=== PATIENT | male | born 1965 | race Caucasian/White ===

== ENCOUNTER 2020-05-26 19:54 | Inpatient (IN) | payer MEDICARE, MEDICAID ==
[~2020-05-26] VITALS: Ht 180.3 cm; Wt 111.1 kg
[2020-05-26] MEDS ORDERED: SODIUM CHLORIDE 0.9% 1,000 ML IV ONE (21:00)
[2020-05-26 23:53] LABS: BASOPHILS % 1.2 % (0.0-2.0); HEMATOCRIT. 36.1 % (42.0-52.0); HEMOGLOBIN. 11.8 g/dL (14.0-18.0); LYMPHOCYTES % 40.8 % (20.0-50.0); MEAN CORPUSCULAR VOLUME 85.8 fL (80.0-94.0); MEAN PLATELET VOLUME 8.8 fl (7.4-10.4); PLATELET 227 x1000/uL (130-400); RED BLOOD CELL COUNT 4.21 mill/uL (4.7-6.1); RED CELL DISTRIBUTION WIDTH 14.3 % (11.6-14.6)
[2020-05-26 23:58] LABS: CHLORIDE 104 mEq/L (98-107)
[2020-05-27 00:02] LABS: ETHANOL BLOOD < 10 mg/dL
[2020-05-27] MEDS ORDERED: CEFTRIAXONE 1 G PREMIX 50 ML IV ONE (01:30)
[2020-05-27] MEDS ORDERED: AZITHROMYCIN 500 MG in DEXT 5% WATER 250 ML IV ONE (01:30)
[2020-05-27] MEDS ORDERED: POTASSIUM CHLORIDE 20MEQ TABLET SR PO ONE (01:30)
[2020-05-27 09:00] VITALS: BP 135/92
[2020-05-27 09:05] VITALS: BP 138/92
[2020-05-27] MEDS ORDERED: ONDANSETRON HCL 4MG/2ML INJ IV PRN (09:30)
[2020-05-27] MEDS ORDERED: ACETAMINOPHEN 325MG TABLET PO PRN (09:30)
[2020-05-27 12:00] VITALS: BP 143/92
[2020-05-27] MEDS ORDERED: IPRATROPIUM/ALBUTEROL 0.5-3(2.5)MG/3ML NEB HHN PRN (13:15)
[2020-05-27] MEDS: NICOTINE 21MG PATCH TD SCH (13:30)
[2020-05-27] MEDS ORDERED: CARI350T28 MT (15:30)
[2020-05-27] MEDS ORDERED: FURO-152 PO (15:30)
[2020-05-27] MEDS ORDERED: ATOR10TA MT (15:30)
[2020-05-27] MEDS ORDERED: QUET25TA MT (15:30)
[2020-05-27 16:00] VITALS: BP 165/92
[2020-05-27] MEDS ORDERED: LEVE10006 MT (16:39)
[2020-05-27] MEDS ORDERED: TRAM50TA94 PO (16:39)
[2020-05-27] MEDS ORDERED: METH10OR MT (16:39)
[2020-05-27 18:56] LABS: CLARITY URINE CLEAR (CLEAR); COLOR URINE YELLOW (YELLOW); KETONES URINE TRACE (NEGATIVE); LEUKOCYTE ESTERASE URINE NEGATIVE (NEGATIVE); NITRITE URINE NEGATIVE (NEGATIVE); OCCULT BLOOD URINE NEGATIVE (NEGATIVE); PROTEIN URINE NEGATIVE (NEGATIVE); SPECIFIC GRAVITY URINE 1.024 (1.005-1.030)
[2020-05-27 19:11] LABS: *AMPHETAMINES SCREEN URINE PRESUMTIVE POSITIVE (NEGATIVE); *BARBITURATES SCREEN URINE NEGATIVE (NEGATIVE)
[2020-05-27 19:12] LABS: *BENZODIAZEPINES SCREEN URINE NEGATIVE (NEGATIVE); *COCAINE SCREEN URINE NEGATIVE (NEGATIVE); METHADONE URINE SCREEN PRESUMTIVE POSITIVE (NEGATIVE); OPIATES URINE SCREEN NEGATIVE (NEGATIVE); PHENCYCLIDINE URINE SCREEN NEGATIVE (NEGATIVE)
[2020-05-27 19:13] LABS: CANNABINOID URINE SCREEN PRESUMTIVE POSITIVE (NEGATIVE)
[2020-05-27 20:00] VITALS: BP 121/81
[2020-05-27] MEDS: AMLODIPINE 10MG TABLET PO SCH (20:52)
[2020-05-27] MEDS: ENOXAPARIN 30MG/0.3ML SYR SUBCUT SCH (20:54)
[2020-05-27] MEDS: ACETAMINOPHEN WITH CODEINE 300/30MG TABLET PO PRN (20:56)
[2020-05-27] MEDS: METOPROLOL TARTRATE 25MG TABLET PO SCH (22:05)
[2020-05-27] MEDS ORDERED: SIMETHICONE 80MG TABLET CHEW PO PRN (23:00)
[2020-05-27] MEDS: MAGNESIUM/ALUMINUM HYDROXIDE/SIMETHICONE 30ML UDC PO PRN (23:36)
[2020-05-28] VITALS: BP 114/64
[2020-05-28] MEDS: ACETAMINOPHEN WITH CODEINE 300/30MG TABLET PO PRN ×4 (03:25→19:53)
[2020-05-28 04:00] VITALS: BP 125/82
[2020-05-28 07:45] LABS: BASOPHILS % 0.9 % (0.0-2.0); EOSINOPHILS % 5.3 % (0.0-5.0); HEMATOCRIT. 39.8 % (42.0-52.0); HEMOGLOBIN. 13.2 g/dL (14.0-18.0); LYMPHOCYTES % 38.9 % (20.0-50.0); MEAN CORPUSCULAR HEMOGLOBIN 28.8 pg (28.0-32.0); MEAN CORPUSCULAR VOLUME 86.8 fL (80.0-94.0); MEAN PLATELET VOLUME 10.1 fl (7.4-10.4); MONOCYTES % 12.3 % (2.0-8.0); NEUTROPHILS % 42.6 % (40.0-76.0); PLATELET 245 x1000/uL (130-400); RED BLOOD CELL COUNT 4.58 mill/uL (4.7-6.1); RED CELL DISTRIBUTION WIDTH 14.1 % (11.6-14.6)
[2020-05-28 07:47] LABS: CHLORIDE 103 mEq/L (98-107)
[2020-05-28 07:55] LABS: LDL CHOLESTEROL 88 mg/dL (5-100)
[2020-05-28 07:56] LABS: HDL CHOLESTEROL 47 mg/dL (40-59)
[2020-05-28 08:00] VITALS: BP 130/59
[2020-05-28] MEDS: ASPIRIN 81MG TABLET PO SCH (08:33)
[2020-05-28] MEDS: FAMOTIDINE 20MG TABLET PO SCH ×2 (08:38→21:20)
[2020-05-28] MEDS: NICOTINE 21MG PATCH TD SCH (08:39)
[2020-05-28] MEDS: ENOXAPARIN 30MG/0.3ML SYR SUBCUT SCH ×2 (08:40→19:53)
[2020-05-28] MEDS: AMLODIPINE 10MG TABLET PO SCH (08:49)
[2020-05-28] MEDS: METOPROLOL TARTRATE 25MG TABLET PO SCH ×2 (08:49→21:20)
[2020-05-28 12:00] VITALS: BP 128/59
[2020-05-28] MEDS: FUROSEMIDE 40MG/4ML VIAL IVP SCH ×2 (14:56→17:40)
[2020-05-28 20:00] VITALS: BP 114/78
[2020-05-29] VITALS: BP 140/81
[2020-05-29] MEDS: ACETAMINOPHEN WITH CODEINE 300/30MG TABLET PO PRN ×3 (01:58→11:43)
[2020-05-29 04:00] VITALS: BP 121/75
[2020-05-29] MEDS ORDERED: IOHEXOL-350 100 ML BOTTLE ONE (05:40)
[2020-05-29] MEDS ORDERED: IOHEXOL-300 100 ML BOTTLE ONE (05:40)
[2020-05-29] MEDS: FUROSEMIDE 40MG/4ML VIAL IVP SCH ×2 (06:32→17:15)
[2020-05-29] MEDS: MAGNESIUM/ALUMINUM HYDROXIDE/SIMETHICONE 30ML UDC PO PRN (06:50)
[2020-05-29 08:00] VITALS: BP 121/81
[2020-05-29] MEDS: ENOXAPARIN 30MG/0.3ML SYR SUBCUT SCH (08:34)
[2020-05-29] MEDS: ASPIRIN 81MG TABLET PO SCH (08:35)
[2020-05-29] MEDS: METOPROLOL TARTRATE 25MG TABLET PO SCH (08:35)
[2020-05-29] MEDS: AMLODIPINE 10MG TABLET PO SCH (08:35)
[2020-05-29] MEDS: FAMOTIDINE 20MG TABLET PO SCH (08:35)
[2020-05-29] MEDS: NICOTINE 21MG PATCH TD SCH (08:36)
[2020-05-29 09:11] LABS: ABSOLUTE EOSINOPHILS 0.3 x10E3/uL (0.0-0.4); ABSOLUTE LYMPHOCYTES 1.9 x10E3/uL (0.7-3.1); ABSOLUTE MONOCYTES 0.4 x10E3/uL (0.1-0.9); ABSOLUTE NEUTROPHILS 1.9 x10E3/uL (1.4-7.0); BASOPHILS 0 % (Not Estab.); HEMATOCRIT 42.4 % (37.5-51.0); HEMOGLOBIN 13.6 g/dL (13.0-17.7); IMMATURE GRANULOCYTES 0 % (Not Estab.); LYMPHOCYTES 42 % (Not Estab.); MEAN CORPUSCULAR HEMOGLOBIN 28.9 pg (26.6-33.0); MEAN CORPUSCULAR HGB CONC. 32.1 g/dL (31.5-35.7); MEAN CORPUSCULAR VOLUME 90 fL (79-97); MONOCYTES 10 % (Not Estab.); NEUTROPHILS 42 % (Not Estab.); PLATELETS 282 x10E3/uL (150-450); RBC 4.71 x10E6/uL (4.14-5.80); RED CELL DISTRIBUTION WIDTH 12.7 % (11.6-15.4); WBC 4.5 x10E3/uL (3.4-10.8)
[2020-05-29 10:12] LABS: % CD 3 POS. LYMPHOCYTES 73.3 % (57.5-86.2); % CD 4 POS. LYMPHOCYTES 23.6 % (30.8-58.5); % CD 8 POS. LYMPH 48.2 % (12.0-35.5); ABSOLUTE CD 3 1393 /uL (622-2402); ABSOLUTE CD 4 HELPER 448 /uL (359-1519); ABSOLUTE CD 8 SUPPRESSOR 916 /uL (109-897); CD4/CD8 RATIO 0.49 (0.92-3.72)
[2020-05-29 11:43] VITALS: BP 101/60
[2020-05-29] MEDS ORDERED: FLUT1DIS3 INH (12:21)
[2020-05-29] MEDS ORDERED: ALBU18HF2 IH (12:21)
[2020-05-29] MEDS ORDERED: FURO-151 MT (12:21)
[2020-05-29] MEDS ORDERED: POTA10CA42 MT (12:21)
[2020-05-29] MEDS ORDERED: NICO-789 TD (12:21)
[2020-05-29] MEDS ORDERED: AMLO10TA80 PO (12:21)
== END 2020-05-29 19:25 | disposition home or self-care (01) | DRG 205 ==
LOC: ER 19:54 → 6WST 05-27 02:25 → EDBEDREQ 05-27 02:27 → ENRESERV 05-27 07:51
PROVIDERS: ADMIT Internal Medicine; ATTEND Internal Medicine
DX: M94.0 Chondrocostal junction syndrome [Tietze] (principal); J18.9 Pneumonia, unspecified organism; I50.33 Acute on chronic diastolic (congestive) heart failure; E44.1 Mild protein-calorie malnutrition; J44.0 Chronic obstructive pulmonary disease with (acute) lower respiratory infection; I11.0 Hypertensive heart disease with heart failure; R07.9 Chest pain, unspecified; I16.0 Hypertensive urgency; D72.819 Decreased white blood cell count, unspecified; D64.9 Anemia, unspecified; E87.6 Hypokalemia; F32.9 Major depressive disorder, single episode, unspecified; F17.210 Nicotine dependence, cigarettes, uncomplicated; F20.9 Schizophrenia, unspecified; F11.90 Opioid use, unspecified, uncomplicated; F15.90 Other stimulant use, unspecified, uncomplicated; Z68.34 Body mass index [BMI] 34.0-34.9, adult; Z21 Asymptomatic human immunodeficiency virus [HIV] infection status
CPT/HCPCS: 36415; 71045; 71275; 80048; 80053; 80061; 80305; 80320; 81003; 83880; 84443; 84484; 85025; 85379; 86359; 86360; 93005; 93306; 93970; 97162; 99285; J0456; J0696; J1650; J1940; J7030; J7060; Q9967; G0480

== ENCOUNTER 2022-12-30 18:30 | Emergency (ER) | payer MEDICARE, MEDICAID ==
[~2022-12-30] VITALS: Ht 180.3 cm; Wt 112.0 kg
[~2022-12-30 18:30] MED LIST: ALBU18HF2 IH; AMLO10TA80 PO; ATOR10TA MT; CARI350T28 MT; FLUT1DIS3 INH; FURO-151 MT; FURO-152 PO; LEVE10006 MT; METH10OR MT; NICO-789 TD; POTA10CA83 MT; QUET25TA MT; TRAM50TA94 PO
[2022-12-30 18:38] VITALS: O2SAT 100
[2022-12-30 19:53] LABS: BASOPHILS % 0.5 % (0.0-2.0); EOSINOPHILS % 8.1 % (0.0-5.0); HEMATOCRIT. 33.8 % (42.0-52.0); HEMOGLOBIN. 11.2 g/dL (14.0-18.0); MEAN CORPUSCULAR HEMOGLOBIN 29.7 pg (28.0-32.0); MEAN CORPUSCULAR VOLUME 89.9 fL (80.0-94.0); MEAN PLATELET VOLUME 9.1 fl (7.4-10.4); MONOCYTES % 13.8 % (2.0-8.0); NEUTROPHILS % 35.6 % (40.0-76.0); PLATELET 180 x1000/uL (130-400); RED BLOOD CELL COUNT 3.76 mill/uL (4.7-6.1); RED CELL DISTRIBUTION WIDTH 14.5 % (11.6-14.6); WHITE BLOOD COUNT 3.7 x1000/uL (4.5-11.0)
[2022-12-30 20:06] LABS: CHLORIDE 104 mEq/L (98-107); INDEX HEMOLYSI 1 (1-3); INDEX ICTERIC 1 (1-4); INDEX LIPEMIC 1 (1-3); POTASSIUM 3.5 mEq/L (3.5-5.1); SODIUM 138 mEq/L (136-145)
[2022-12-30 20:15] LABS: ACETAMINOPHEN < 2 ug/mL (10-30); ALANINE AMINOTRANSFERASE 19 IU/L (13-61); ALBUMIN 2.8 g/dL (3.4-5.0); ASPARTATE AMINOTRANSFERASE 25 IU/L (15-37); BILIRUBIN TOTAL 0.6 mg/dL (0.1-1.0); CALCIUM 7.9 mg/dL (8.5-10.1); CARBON DIOXIDE 29 mEq/L (21-32); CREATININE 0.7 mg/dL (0.6-1.3); ETHANOL BLOOD < 10 mg/dL (<10); GLUCOSE 80 mg/dL (70-105); PROTEIN TOTAL 6.2 g/dL (6.0-8.3); UREA NITROGEN BLOOD 6 mg/dL (7-21)
[2022-12-30] MEDS ORDERED: LORAZEPAM 2MG/ML CPJ IM ONE (22:00)
[2022-12-30] MEDS ORDERED: HALOPERIDOL LACTATE 5MG/ML VIAL IM ONE (22:00)
[2022-12-30 22:52] LABS: CLARITY URINE CLEAR (CLEAR); COLOR URINE YELLOW (YELLOW); GLUCOSE URINE NEGATIVE (NEGATIVE); KETONES URINE NEGATIVE (NEGATIVE); LEUKOCYTE ESTERASE URINE NEGATIVE (NEGATIVE); NITRITE URINE NEGATIVE (NEGATIVE); OCCULT BLOOD URINE NEGATIVE (NEGATIVE); PH URINE 6.5 (4.5-8.0); PROTEIN URINE NEGATIVE (NEGATIVE); SPECIFIC GRAVITY URINE 1.008 (1.005-1.030)
[2022-12-30 23:26] LABS: *AMPHETAMINES SCREEN URINE NEGATIVE (NEGATIVE); *BARBITURATES SCREEN URINE NEGATIVE (NEGATIVE); *BENZODIAZEPINES SCREEN URINE NEGATIVE (NEGATIVE); *COCAINE SCREEN URINE NEGATIVE (NEGATIVE); CANNABINOID URINE SCREEN PRESUMTIVE POSITIVE (NEGATIVE); ECSTASY MDMA SCREEN URINE NEGATIVE (NEGATIVE); OPIATES URINE SCREEN NEGATIVE (NEGATIVE); PHENCYCLIDINE URINE SCREEN NEGATIVE (NEGATIVE)
[2022-12-31] MEDS ORDERED: AMLODIPINE 10MG TABLET PO SCH (06:45)
[2022-12-31] MEDS ORDERED: AMLODIPINE 5MG TABLET PO SCH (09:00)
[2022-12-31] MEDS ORDERED: ACETAMINOPHEN 325MG TABLET PO ONE (09:30)
[2022-12-31] MEDS ORDERED: ACETAMINOPHEN 325MG TABLET PO NR (11:30)
[2022-12-31 13:00] VITALS: BP 126/74; PULSE 82; RESP 18; TEMP 98.3
== END 2022-12-31 13:07 | disposition home or self-care (01) ==
LOC: ER 18:30
DX: R45.851 Suicidal ideations (principal); F20.9 Schizophrenia, unspecified; J44.9 Chronic obstructive pulmonary disease, unspecified; F32.9 Major depressive disorder, single episode, unspecified; I10 Essential (primary) hypertension; Z87.01 Personal history of pneumonia (recurrent); Z90.49 Acquired absence of other specified parts of digestive tract; Z79.899 Other long term (current) drug therapy
CPT/HCPCS: 36415; 80053; 80305; 80307; 80320; 80329; 81003; 85025; 99285; G0480